=== PATIENT | female | born 1950 | race Caucasian/White ===

== ENCOUNTER 2017-12-27 07:29 | Day surgery (SDC) | payer MEDICARE, OTHER ==
[~2017-12-27] VITALS: Ht 159.4 cm; Wt 67.1 kg
[~2017-12-27 07:29] MED LIST: SYNTHROID137 MCG PO
--- NOTE | 2017-12-27 08:50 | NUR ---
12/27/17 0850 Kassy Varghese 0835 PT ARRIVED IN PACU SLEEPY WITH NO C/O'S. ABD SOFT. 0850 OXYGEN TURNED OFF. SATS 98% ON RA.
--- NOTE | 2017-12-27 15:29 | OR ---
[facility] [address], [place] [address] Signed DATE OF OPERATION: 12/27/2017 SURGEON: Yessy Sultana MD PREOPERATIVE DIAGNOSIS: Colon screening. POSTOPERATIVE DIAGNOSIS: Sigmoid diverticulosis. PROCEDURE: Total colonoscopy to cecum. ANESTHESIA: Intravenous sedation, fentanyl 100 mcg, Versed 5 mg. INDICATION: This 67-year-old white woman is a patient of Dr. Dsouza in [place]. She underwent colonoscopy in 2005, which was normal. She has no family history of colon cancer and has no symptoms currently. She is admitted at this time to undergo screening colonoscopy. She understands the risks of bleeding, infection, and perforation. FINDINGS: The prep was excellent. Complete colonoscopy was undertaken to the cecum. There were few scattered diverticula of the sigmoid and left colon, otherwise normal. There was no evidence of polyps or cancer. No colitis. DESCRIPTION OF PROCEDURE: The patient was brought to the endoscopy suite and placed in lateral decubitus position, given intravenous sedation to the point of slurred speech and nystagmus. Digital rectal examination was normal. An Olympus video colonoscope was passed in the rectum and manipulated throughout the colon ultimately intubating the cecum itself. The ileocecal valve and appendiceal orifice were normal. The scope was withdrawn from that point and careful inspection upon withdrawal of scope showed no sign of abnormality, specifically no polyps or colitis. In the left colon and sigmoid, there were a few scattered diverticula. Photographs were taken. Retroflexed view of the rectum was normal. The scope was removed and the patient was taken to recovery in good condition. Electronically Signed By: YESSY SULTANA MD 12/27/17 1529 PATIENT NAME: MONICO DALLAS OPERATIVE REPORT DATE OF : 48 REPORT #: [id number] PHYSICIAN: YESSY SULTANA MD PCP: VALE DSOUZA MD REPORT IS CONFIDENTIAL AND NOT TO BE RELEASED WITHOUT AUTHORIZATION [facility] [address], [place] [address] Signed CONCLUDING DIAGNOSIS: Essentially normal colon except for some diverticula. PLAN: Recommend repeat colonoscopy in 10 years and high-fiber diet. She will return to the ongoing care of Dr. Dsouza in [place]. MD DESIREE Palacio/YUKO /[id number] cc: Dr. Catrina [place] Copies: ~ Electronically Signed By: YESSY SULTANA MD 12/27/17 1529 PATIENT NAME: MONICO DALLAS OPERATIVE REPORT DATE OF : 48 REPORT #: [id number] PHYSICIAN: YESSY SULTANA MD PCP: VALE DSOUZA MD REPORT IS CONFIDENTIAL AND NOT TO BE RELEASED WITHOUT AUTHORIZATION
== END 2017-12-27 09:15 | disposition home or self-care (01) ==
LOC: OPS 07:29 → DS 07:29 → OPS 09:15
PROVIDERS: Surgery
PROC: 0DJD8ZZ Inspection of Lower Intestinal Tract, Via Natural or Artificial Opening Endoscopic (ICD-10-PCS; principal; 2017-12-27 08:30)
DX: Z12.11 Encounter for screening for malignant neoplasm of colon (principal); K57.30 Diverticulosis of large intestine without perforation or abscess without bleeding; Z98.890 Other specified postprocedural states
CPT/HCPCS: 99153; G0500; J2250; J3010; J7120